=== PATIENT | female | born 1960 | race Caucasian/White ===

== ENCOUNTER 2017-01-31 06:43 | Observation (INO) | payer BC ==
[~2017-01-31] VITALS: Ht 157.5 cm; Wt 70.4 kg
[~2017-01-31 06:43] MED LIST: BENICAR20 MG PO; CIPRO 500MG TA500 MG PO; HYDROCHLOROTHIA25 M1 PO; KEFLEX 500MG.500 MG PO; LIPITOR20 M1 PO; MEDROL 4MG. DOSE4 MG PO; PARAFON FORTE500 MG PO; SYNTHROID 0.0.125 MG NG; TYLENOL 8 HOUR650 MG PO; VICODIN 5/500 T1 TAB PO; [UNRECOGNIZED DRUG - OTHER] PO
[2017-01-31 06:49] VITALS: BP 149/80
[2017-01-31] MEDS ORDERED: FUROSEMIDE 40MG40 M1 PO (07:03)
[2017-01-31] MEDS ORDERED: SIMVASTATIN20 MG PO ×2 (07:05→09:59)
[2017-01-31 07:20] LABS: LYMPH # 2.5 K/mm3 (0.7-4.5); LYMPH % 37.5 % (10-50.0)
--- OUTSIDE RECORDS SUMMARY | 2017-01-31 07:28 | External Medical Summary Rpt ---
Author Author , NEREIDA PADRON Address Unknown Phone [email or web address] Immunization Name Date Rout CVX Reac Dose Comm Prov Is Faci e tion ent ider Refu lity Give sed n Td 06- 9 999 Hist H149 No H149 (rey 4-20 oric lt), 01 al Info adso rmat rbed ion - Sour ce Unsp ecif ied
--- OUTSIDE RECORDS SUMMARY | 2017-01-31 07:28 | External Medical Summary Rpt ---
Author Author , NEREIDA PADRON Address Unknown Phone [email or web address] Immunization Name Date Rout CVX Reac Dose Comm Prov Is Faci e tion ent ider Refu lity Give sed n Td 06- 9 999 Hist H149 No H149 (rey 4-20 oric lt), 01 al Info adso rmat rbed ion - Sour ce Unsp ecif ied
--- OUTSIDE RECORDS SUMMARY | 2017-01-31 07:28 | External Medical Summary Rpt ---
Author Author [employer] Organization [employer] Address Unknown Phone Unavailable Purpose Continuity of Care Document - through 2016
--- OUTSIDE RECORDS SUMMARY | 2017-01-31 07:28 | External Medical Summary Rpt ---
Author Author NEREIDA Address Unknown Phone [email or web address] Purpose Continuity of Care Document - through 2016
--- OUTSIDE RECORDS SUMMARY | 2017-01-31 07:28 | External Medical Summary Rpt ---
Author Author NEREIDA Address Unknown Phone [email or web address] Purpose Continuity of Care Document - through 2016
[2017-01-31 07:43] LABS: BUN 24 mg/dL (7-18)
[2017-01-31 07:45] LABS: GFR (ESTIMATED) 64 ML/MIN (59-)
--- NOTE | 2017-01-31 08:40 | Emergency Room Report ---
See Addendum History of Present Illness Time Seen by 0824 Presenting Problem in Triage Pt arrived:Wheelchair Presenting Problem:woke with left ankle cramping and stood to stretch it out. Up to the bathroom and got hot and nauseated and passed out. Recent treatment for low potassium. Has been working out in her garden alot, doesn't drink water and is on a diuretic, Onset of symptoms date/time:01/31/1706/07/600 or onset unknown for: Treatment Prior to Arrival: [facility]NER Provided by: Sepsis Risk Assessment: Temp: 96.5 B/P: 132/73 MAP: 103 Pulse: 87 Resp: 14 Recent fever? N Clinical Suspician of Infection? N Mental Status: 1 - Regular (Normal Baseline) Sepsis Risk:Low Sepsis Risk Have you (or family members/close friends) recently traveled outside the [place]? N If Yes, where/when: Have you had exposure to infectious disease within the past month? TB? Other? Specify: I AGREE WITH THE ABOVE HISTORY, SHE HAD SIMILAR EPISOE IN NOVEMBER IT TOOL UP TO DECEMBER T OF IT, SHE IS NOT ON A SUPPLEMENT, SHE GOT NAUSEOUS IN THE BATHROOM AND DID PASS OUT ON THE COUCH, NO TRAUMA, UNKNOWN TIME, THE IS OUT FOR BREAKFAST. TODAY HER HER POTASSIUM IS 2.3. Source patient, RN notes reviewed Exam Limitations no limitations ALLERGIES Coded Allergies: No Known Allergies (01/31/17) Home Medications Reported Medications Olmesartan Medoxomil (Benicar) 20 MG PO DAILY Levothyroxine Sodium (Synthroid 0.125MG) 0.125 MG NG DAILY HYDROCHLOROTHIAZIDE (Hydrochlorothiazide) 25 MG PO DAILY Atorvastatin Calcium (Lipitor) 20 MG PO DAILY Acetaminophen (Tylenol 8 Hour) 650 MG PO ONCE Chlorzoxazone (Parafon Forte 500MG) 500 MG PO ONCE Furosemide 40 MG PO DAILY #90 Simvastatin 20 MG PO DAILY #90 History Medical History General Angina: No NE: No Hypertension? Yes Hyperlipidemia? Yes CHF? No COPD? No Asthma? No CVA? No Seizures? No Diabetes? No GB Disease: Yes MRSA? No TB? No Cancer? 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 Respiratory no symptoms reported Cardiovascular no symptoms reported Gastrointestinal no symptoms reported Genitourinary no symptoms reported. Musculoskeletal see HPI Skin no symptoms reported Psychiatric/Neurological no symptoms reported Physical Exam Vital Signs Vital Signs Date Time Temp Pulse Resp B/P Pulse O2 O2 Flow FiO2 Ox Delivery Rate 01/31 0739 87 132/73 01/31 0738 75 127/86 01/31 0738 72 130/83 01/31 0649 96.5 75 14 149/80 97 - WBC >12,000 or <4,000 or 10% bands? 2 or more SIRS Criteria Met? B/P:132/73 MAP:103 Creatinine >2.0? UA output<0.5ml/kg/hr for 2 hrs? Platelet count >100,000? Lactate >2.0mmol/1? INR >1.2 or PTT > than 60 sec? Evidence of Organ Dysfunction? Provider documented clinical suspician of infection? N Sepsis Criteria Count: 1 Sepsis Risk: Low Sepsis Risk General Appearance normal appearance, WD/WN Eye Exam - bilateral eye normal exam, bilateral eye PERRL, bilateral eye EOMI Ear, Nose, Throat hearing grossly normal, normal ENT inspection Respiratory Status Yes: trachea midline, chest symmetrical, non tender chest. No: respiratory distress. Lung Sounds bilateral: normal breath sounds, lungs clear. Cardiovascular normal exam, regular rate/rhythm, no peripheral edema, no gallop, no JVD, no murmur, no rub, normal peripheral pulses Peripheral Pulses Pulses normal Yes Gastrointestinal normal bowel sounds, normal exam, non tender, soft, no organomegaly Extremities non-tender, normal range of motion, normal inspection, NO DILATED VEINS , REDNESS OR TENDERNESS. 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 Yes Results/Orders Laboratory Tests 01/31/17 0657: Sodium 137, Potassium 2.3 *L, Chloride 96 L, Carbon Dioxide 33 H, BUN 24 H, Creatinine 0.9, Estimated Creat Clear 76, Estimated GFR (MDRD) 64, Glucose 153 H, Calcium 9.8, Magnesium 1.9, Total Bilirubin 0.6, AST 27, ALT 34, Alkaline Phosphatase 105, Creatine Kinase 108, CK-MB (CK-2) Rel Index 0.6, CK and CKMB Interp 0.6, Troponin I < 0.02, Total Protein 9.0 H, Albumin 4.5, Globulin 4.5 H, Albumin/Globulin Ratio 1.0 L, WBC 6.7, RBC 4.88, Hgb 15.0, Hct 43.6, MCV 89.4, RDW 12.8, Plt Count 240, MPV 9.5, Gran % 52.6, Gran # 3.6, Lymphocytes % 37.5, Monocytes % 6.2, Eosinophils % 3.0, Basophils % 0.6, Lymphocytes # 2.5, Monocytes # 0.4, Eosinophils # 0.2, Basophils # 0.0, PUBS MCHC 34.0, MCH 30.4 Current Medication Orders Sig/Perry Start time Last Medication Dose Route Stop Time Status Admin Potassium Chloride 40 MEQ ONCE ONE 01/31 0830 DC 01/31 PO 01/31 831 0831 Potassium Chloride 0 .STK-MED ONE 01/31 826 DC PO Sodium Chloride 1,000 ML .STK-MED ONE 01/31 0718 DC IV Ondansetron HCl 0 .STK-MED ONE 01/31 0717 DC .ROUTE Ondansetron HCl 4 MG ONCE ONE 01/31 0715 DC 01/31 IV 01/31 0716 0724 Sodium Chloride 1,000 ML .Q1H1M 01/31 07 DC 01/31 IV 02/01 0815 0725 Sodium Chloride 10 ML PRN PRN 01/31 715 AC IV 02/01 07 Orders Procedure Date/time Status Decision to admit 01/31 0839 Active ORTHOSTATIC B/P 01/31 731 Active ELECTROCARDIOGRAM REQUEST 02/01 712 Active CHEST-PORTABLE 02/01 712 Active IV SALINE LOCK 02/01 712 Active TRANSCRIPTION COORDINATOR 02/01 712 Active MAGNESIUM 02/01 712 Complete CBC WITH AUTO DIFF 02/01 712 Complete CARDIAC ENZYMES 02/01 712 Complete CHEM 12 PROFILE 02/01 712 Complete CM/EKG CM/EKG EKG rate, NSR, rhythm, no evid. of ischemic chgs, no ectopy, POOR R WAVE PROGRESSION NO ACUTE FINDINGS . XRAY/CT/US XRAY/CT/US XRAY chest, NAD Complicating Factors Comment SHE WAS GIVEN POTASSIUM SUPPLEMENT IN THE ED. Departure Departure Time of Disposition 0837 Disposition Still a Patient Clinical Impression Primary Impression: Syncope Secondary Impressions: Hypokalemia Condition STABLE Referrals NIDIA ALVAREZ (Family) Additional Instructions IDISCUSSED WITH DR ALVAREZ WHO WILL ADMIT FOR POTASSIUM SUPPLEMENT AND REPEATED LABS. Discharge Counseling Counseled pt/family regarding diagnosis, test results, follow up needs ED Critical Care Critical Care No If Critical Care minutes are documented, the time involved in the performance of seperately reportable procedures was not counted toward critical care time documented. I directly delivered medical care to this critically ill and/or injured patient. Timely evaluation and treatment was necessary to address the significant organ system(s) dysfunction present in this patient. at 0841
--- NOTE | 2017-01-31 08:41 | RADIOLOGY REPORT PS360 ---
CHEST-PORTABLE HISTORY: SYNCOPE ORDERING PHYSICIAN: Efrain Grant MD PATIENT AGE: 56 years COMPARISON: 12/17/2015 FINDINGS: The cardiomediastinal silhouette and pulmonary vascularity are within normal limits. The lungs are clear without infiltrates, suspicious nodules, or pleural effusions. No acute bony abnormalities. IMPRESSION: Negative chest, no acute finding
--- OUTSIDE RECORDS SUMMARY | 2017-01-31 08:43 | External Medical Summary Rpt ---
Author Author NEREIDA Address Unknown Phone [email or web address] Purpose Continuity of Care Document - through 2016
--- OUTSIDE RECORDS SUMMARY | 2017-01-31 08:43 | External Medical Summary Rpt ---
Author Author , NEREIDA PADRON Address Unknown Phone [email or web address] Immunization Name Date Rout CVX Reac Dose Comm Prov Is Faci e tion ent ider Refu lity Give sed n Td 06- 9 999 Hist H149 No H149 (rey 4-20 oric lt), 01 al Info adso rmat rbed ion - Sour ce Unsp ecif ied
--- OUTSIDE RECORDS SUMMARY | 2017-01-31 08:43 | External Medical Summary Rpt ---
Author Author , NEREIDA PADRON Address Unknown Phone [email or web address] Immunization Name Date Rout CVX Reac Dose Comm Prov Is Faci e tion ent ider Refu lity Give sed n Td 06- 9 999 Hist H149 No H149 (rey 4-20 oric lt), 01 al Info adso rmat rbed ion - Sour ce Unsp ecif ied
--- OUTSIDE RECORDS SUMMARY | 2017-01-31 08:43 | External Medical Summary Rpt ---
Author Author NEREIDA Address Unknown Phone [email or web address] Purpose Continuity of Care Document - through 2016
[2017-01-31 09:42] VITALS: BP 131/76
[2017-01-31] MEDS ORDERED: SUMATRIPTAN SU100 M1 PO (10:10)
[2017-01-31 15:30] VITALS: BP 128/68
[2017-01-31] MEDS ORDERED: K-DUR 2020 MEQ PO (15:50)
--- NOTE | 2017-01-31 15:57 | Discharge Summary Standard ---
Demographics: Admit date: 01/31/17 Chief complaint: muscle cramp/syncope PRIMARY DIAGNOSIS: Hypokalemia Allergies: Coded Allergies: No Known Allergies (01/31/17) History of present illness: History of present illness: 56-year-old female with medical history pertinent for hypertension and occasional edema who this morning after getting up to try to alleviate a left calf muscle cramp was using the restroom when she stood up from the commode and had a syncopal episode. Her witnessed the episode and noted that she was out for about 15-30 seconds, and he was able to transport her to the couch in her living room. She quickly regained consciousness and had no post episode syncope or unusual movements. She continued to have left calf cramping. Brought to the emergency department where workup was unremarkable and her exam and workup was unremarkable except for a potassium level of 2.3. She relates that a couple of months ago she was placed on potassium by her primary care physician but her potassium normalized and this was discontinued. She notes that earlier this summer when she was hypokalemic she had been doing a lot of outside work in her garden, and she once again has been doing a lot of gardening outside, and yesterday worked about 6 hours outside. Her notes that she does not drink a lot of fluid when she is working outside. Past medical history: Family HX Family Hx Insignificant Yes Immunization HX DT/Tetanus 1-4 YRS General Angina: No NV: No Hypertension? Yes Hyperlipidemia? Yes CHF? No COPD? No Asthma? No CVA? No Seizures? No Diabetes? No GB Disease: Yes MRSA? No TB? No Cancer? No Past Surgical HX Previous Surgery?Y GALLBLADDER APPENDECTOMY Hemorrhoid POLYP REMOVED Current home meds: Reported Medications Simvastatin 20 MG PO QHS Sumatriptan Succinate 100 MG PO PRN PRN MIGRAINES #9 Levothyroxine Sodium (Synthroid 0.125MG) 0.125 MG NG DAILY HYDROCHLOROTHIAZIDE (Hydrochlorothiazide) 25 MG PO DAILY Furosemide 40 MG PO DAILY #90 Social Hx: Smoking HX Tobacco No Alcohol Alcohol: No Hx of Drug Use Drug Use? No Patien't marital status is Patient's support system is excellent Review of systems: Constitutional malaise, weakness. Respiratory No: no symptoms reported. Cardiovascular No no symptoms reported, syncope Gastrointestinal/Abdominal No no symptoms reported Genitourinary No: no symptoms reported. Musculoskeletal see HPI. Neurological Yes: see HPI. Exam: Lab data for last 24 hours: Laboratory Tests 01/31/17 1400: Sodium 138, Potassium 3.3 L, Chloride 101, Carbon Dioxide 31, BUN 17, Creatinine 0.7, Estimated Creat Clear 97, Estimated GFR (MDRD) 86, Glucose 148 H, Calcium 9.0 01/31/17 0657: Sodium 137, Potassium 2.3 *L, Chloride 96 L, Carbon Dioxide 33 H, BUN 24 H, Creatinine 0.9, Estimated Creat Clear 76, Estimated GFR (MDRD) 64, Glucose 153 H, Calcium 9.8, Magnesium 1.9, Total Bilirubin 0.6, AST 27, ALT 34, Alkaline Phosphatase 105, Creatine Kinase 108, CK-MB (CK-2) Rel Index 0.6, CK and CKMB Interp 0.6, Troponin I < 0.02, Total Protein 9.0 H, Albumin 4.5, Globulin 4.5 H, Albumin/Globulin Ratio 1.0 L, D-Dimer 269, WBC 6.7, RBC 4.88, Hgb 15.0, Hct 43.6, MCV 89.4, RDW 12.8, Plt Count 240, MPV 9.5, Gran % 52.6, Gran # 3.6, Lymphocytes % 37.5, Monocytes % 6.2, Eosinophils % 3.0, Basophils % 0.6, Lymphocytes # 2.5, Monocytes # 0.4, Eosinophils # 0.2, Basophils # 0.0, PUBS MCHC 34.0, MCH 30.4 Admission vital signs: 1ST Vital Signs Result Date Time Pulse Ox 97 01/31 649 B/P 149/80 01/31 649 Temp 96.5 01/31 649 Pulse 75 01/31 649 Resp 14 01/31 649 O2 Delivery ROOM AIR 01/31 0942 Exam General appearance: normal appearance, alert, awake Eyes: normal exam, anicteric ENT: normal exam, mucous membranes moist Cardiovascular: normal exam Respiratory: normal exam, clear to auscultation ABD: normal exam, non-distended, normal bowel sounds Extremities: normal exam Musculoskeletal: normal exam Skin: normal exam, intact, normal color Neuro: normal exam, alert, no deficit Hospital Course Hospital Course: Patient was admitted, neurologic checks were done which were normal. Potassium was replaced orally and intravenously and patient felt much better. She began chart with her regular medications. In view of dual therapy with furosemide and hydrochlorothiazide, it would seem prudent to continue potassium replacement. I prescribed potassium 20 meq once daily. She will start this tomorrow. Have asked her to followup with her primary care physician in the next week or 2. Please have a copy of the entire records sent to Dr. Nidia Alvarez in [place]. Medications Medications: Discharge meds are as noted. Follow up Follow up in office in: 5 DAYS with: NIDIA ALVAREZ at [id number]
== END 2017-01-31 15:15 | disposition home or self-care (01) ==
LOC: ER 06:43 → 2ND 08:40
PROVIDERS: Emergency Medicine; Internal Medicine Adolescent Medicine
DX: E87.6 Hypokalemia (principal); R55 Syncope and collapse; I10 Essential (primary) hypertension
CPT/HCPCS: G0378; J2405